=== PATIENT | female | born 1985 ===

== ENCOUNTER 2017-01-20 15:07 | Emergency (ER) | payer MEDICAID ==
[~2017-01-20] VITALS: Ht 162.6 cm; Wt 68.0 kg
[2017-01-20] MEDS ORDERED: IV NS 1000 ML 1,000 ML IV ONE (15:15)
[2017-01-20 15:36] LABS: BASOPHILS # (AUTO) 0.1 K/uL (0.0-8.0); BASOPHILS % (AUTO) 1.1 % (0.0-2.0); EOSINOPHILS # (AUTO) 0.1 K/uL (0.0-0.7); HEMATOCRIT 40.7 % (37-47); HEMOGLOBIN 13.4 G/DL (12.0-16.0); LYMPHOCYTES # (AUTO) 1.5 K/UL (0.8-4.8); LYMPHOCYTES % (AUTO) 23.9 % (20.5-51.5); MEAN CORPUSCULAR HGB CONC 33 g/dL (32.0-37.0); MEAN CORPUSCULAR VOLUME 88.1 FL (81.0-99.0); MONOCYTES # (AUTO) 0.5 K/UL (0.1-1.30); MONOCYTES % (AUTO) 7.7 % (0.0-11.0); NEUTROPHILS % (AUTO) 66.3 % (38.5-71.5); PLATELET COUNT (AUTO) 249 K/UL (150-450); RED BLOOD CELL COUNT(AUTO) 4.61 MIL/UL (4.2-5.4); WHITE BLOOD COUNT (AUTO) 6.2 K/UL (4.0-11.2)
[2017-01-20 15:41] LABS: CREATININE 0.8 mg/dL (0.6-1.3); POTASSIUM 3.6 mmol/L (3.5-5.1)
--- NOTE | 2017-01-20 15:42 | NUR ---
lead section supervisor called pt mother and the school pt kids go to. pt mother will scrap picker the pt kid from school and will come to er per nsg lead section supervisor.
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
[2017-01-20 15:46] LABS: BILIRUBIN,TOTAL 0.6 mg/dL (0.2-1.0); TOTAL PROTEIN, SERUM 7.3 g/dL (6.4-8.2)
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
[2017-01-20] MEDS ORDERED: IOHEXOL 300MG/ML 100 ML INFUS..BTL ONE (16:15)
[2017-01-20] MEDS ORDERED: NORMAL SALINE FLUSH 10 ML DISP.SYRIN ONE (16:15)
[2017-01-20] MEDS ORDERED: IV NORMAL SALINE 250 ML IV ONE (16:15)
--- NOTE | 2017-01-20 17:00 | NUR ---
pt mother and kid at bedside.
--- NOTE | 2017-01-20 18:19 | NUR ---
pt able to walk with steady gait, no dizziness. sore body but does not want pain med at this point.
--- NOTE | 2017-01-20 18:26 | NUR ---
Patient discharged to home in stable conditon. Written and verbal after care instructions given. Patient verbalizes understanding of instructions.pt walks in steady gait, accompanied by both parents and kid.
[2017-01-20 18:28] VITALS: BP 111/79
== END 2017-01-20 18:30 | disposition home or self-care (01) ==
LOC: ER 15:08
DX: S39.011A Strain of muscle, fascia and tendon of abdomen, initial encounter (principal); S39.013A Strain of muscle, fascia and tendon of pelvis, initial encounter; S09.11XA Strain of muscle and tendon of head, initial encounter; S29.011A Strain of muscle and tendon of front wall of thorax, initial encounter; S21.90XA Unspecified open wound of unspecified part of thorax, initial encounter; V49.9XXA Car occupant (driver) (passenger) injured in unspecified traffic accident, initial encounter; Y93.I9 Activity, other involving external motion; Y92.89 Other specified places as the place of occurrence of the external cause; Y99.8 Other external cause status
CPT/HCPCS: 36415; 70030-TC; 70450; 71010; 71260; 72125; 84703; 85025; 93005; A4663; J3490; J7050; Q9967